=== PATIENT | male | born 1985 | race Caucasian/White ===

== ENCOUNTER → 2020-02-15 | Outpatient (CLI) | payer BC ==
[~2020-02-15] MED LIST: ALBU90OI INH; AMOCLA500 PO; AMOX500 PO; CYCL10 PO; ERYT.5TO OD; HYDACE5 PO; HYDGUAL120 PO; Prednisone20 MG PO; SPACER IH; Triamcinolone A15 GM TOP; Ultram50 MG PO; Zithromax250 MG PO
== END | disposition home or self-care (01) ==
LOC: LAB 13:15
DX: S90.812A Abrasion, left foot, initial encounter (principal); L08.9 Local infection of the skin and subcutaneous tissue, unspecified
CPT/HCPCS: 87070; 87077; 87147; 87186; 87205

== ENCOUNTER 2024-04-23 17:21 | Emergency (ER) | payer BC ==
[~2024-04-23] VITALS: Ht 157.5 cm; Wt 70.3 kg
[2024-04-23 17:48] VITALS: BP 159/110
[2024-04-23] MEDS ORDERED: Cyclobenzaprine HCl 10 MG Tab PO ONE (20:35)
[2024-04-23] MEDS ORDERED: CYCL10 PO (20:37)
== END 2024-04-23 20:45 | disposition home or self-care (01) ==
LOC: ER 17:21
DX: M26.622 Arthralgia of left temporomandibular joint (principal); J45.909 Unspecified asthma, uncomplicated; Z79.2 Long term (current) use of antibiotics; Z79.899 Other long term (current) drug therapy; Z91.09 Other allergy status, other than to drugs and biological substances; Z88.5 Allergy status to narcotic agent; Z87.891 Personal history of nicotine dependence
CPT/HCPCS: 70486; 99283-25; A9270